=== PATIENT | male | born 1975 | race African-American/Black ===

== ENCOUNTER 2019-01-14 19:42 | Emergency (ER) | payer MEDICAID ==
[~2019-01-14] VITALS: Ht 182.9 cm; Wt 95.0 kg
[~2019-01-14 19:42] MED LIST: SEROQUEL
[2019-01-14 19:46] VITALS: BP 144/102
== END 2019-01-14 23:00 | disposition left against medical advice (07) ==
LOC: ER 19:48
DX: Z53.21 Procedure and treatment not carried out due to patient leaving prior to being seen by health care provider (principal)

== ENCOUNTER 2020-05-06 11:30 | Emergency (ER) | payer MEDICAID ==
[~2020-05-06] VITALS: Ht 177.8 cm; Wt 79.0 kg
[2020-05-06 11:36] VITALS: BP 142/86
== END 2020-05-06 12:30 | disposition home or self-care (01) ==
LOC: ER 11:40
DX: R10.13 Epigastric pain (principal); F14.129 Cocaine abuse with intoxication, unspecified; F10.129 Alcohol abuse with intoxication, unspecified; Y90.9 Presence of alcohol in blood, level not specified; I10 Essential (primary) hypertension; F20.9 Schizophrenia, unspecified; F31.9 Bipolar disorder, unspecified; F16.10 Hallucinogen abuse, uncomplicated
CPT/HCPCS: 99283

== ENCOUNTER 2020-07-05 16:58 | Emergency (ER) | payer MEDICAID ==
[~2020-07-05] VITALS: Ht 170.2 cm; Wt 68.0 kg
[2020-07-05 19:36] LABS: HEMATOCRIT 45.7 % (42.0-52.0); HEMOGLOBIN 14.9 g/dL (14.0-18.0); MEAN CORPUSCULAR HEMOGLOBIN 28.4 pg (28.0-32.0); PLATELET 260 x1000/uL (130-400); RED BLOOD CELL COUNT 5.25 mill/uL (4.7-6.1); RED CELL DISTRIBUTION WIDTH 14.5 % (11.6-14.6)
[2020-07-05 19:46] LABS: CHLORIDE 103 mEq/L (98-107)
[2020-07-05 19:50] LABS: CLARITY URINE CLEAR (CLEAR); COLOR URINE YELLOW (YELLOW); KETONES URINE NEGATIVE (NEGATIVE); LEUKOCYTE ESTERASE URINE NEGATIVE (NEGATIVE); NITRITE URINE NEGATIVE (NEGATIVE); OCCULT BLOOD URINE NEGATIVE (NEGATIVE); PH URINE 6.5 (4.5-8.0); PROTEIN URINE NEGATIVE (NEGATIVE); SPECIFIC GRAVITY URINE 1.007 (1.005-1.030); UROBILINOGEN URINE 0.2 E.U./dL (0.2-1.0)
[2020-07-05 23:07] VITALS: BP 114/97
== END 2020-07-05 23:31 | disposition home or self-care (01) ==
LOC: ER 16:58
DX: F19.10 Other psychoactive substance abuse, uncomplicated (principal); F14.10 Cocaine abuse, uncomplicated; F16.10 Hallucinogen abuse, uncomplicated; Z86.59 Personal history of other mental and behavioral disorders
CPT/HCPCS: 36415; 80053; 81003; 82962; 85027; 99285; A4315